=== PATIENT | male | born 1975 | race African-American/Black ===

== ENCOUNTER 2017-02-15 18:37 | Emergency (ER) | payer OTHER ==
[2017-02-15 18:40] VITALS: BP 132/86; TEMP 99.7; BMI 40.3
[2017-02-15] MEDS ORDERED: ZOFRAN 4 MG/2 ML IVP STA (18:47)
[2017-02-15] MEDS ORDERED: SODIUM CHLORIDE 1,000 ML IV STA (18:47)
[2017-02-15] MEDS ORDERED: PROTONIX IV IVP STA (19:05)
[2017-02-15] MEDS ORDERED: PEPCID IVP STA (19:06)
[2017-02-15 19:15] LABS: BASOPHILS % (AUTO) 0.3 % (0.0-3.0); EOSINOPHILS % (AUTO) 0.3 % (0.0-7.0); HEMATOCRIT 40.8 % (42.0-52.0); HEMOGLOBIN 14.1 g/dl (14.0-18.0); IMMATURE GRANULOCYTE % (AUTO) 0.3 % (0.0-5.0); LYMPHOCYTES # (AUTO) 0.5 K/uL (0.60-3.4); MEAN CORPUSCULAR HEMOGLOBIN 29.2 pg (27.0-31.0); MEAN CORPUSCULAR HGB CONC 34.6 (31.8-35.4); MEAN CORPUSCULAR VOLUME 84.5 fl (80.0-94.0); MONOCYTES # (AUTO) 0.2 K/uL (0.4-2.0); MONOCYTES % (AUTO) 6.2 (0-10); NEUTROPHILS # (AUTO) 3.1 K/ul (2.0-6.9); NEUTROPHILS % (AUTO) 78.9; PLATELET COUNT 226 10^3/uL (140-440); RED BLOOD COUNT 4.83 10^6/ul (4.70-6.10); WHITE BLOOD COUNT 3.86 K/ul (4.2-10.2)
--- NOTE | 2017-02-15 19:17 | CT ---
EXAM: CT Abdomen without contrast. CT Pelvis without contrast. HISTORY: Vomiting. Abdominal pain. COMPARISON: None available. TECHNIQUE: Multiple axial images of the abdomen and pelvis were obtained without intravenous contra st. Images were reformatted in the coronal plane. FINDINGS: Please note that evaluation of the abdominal and pelvic structures is limited due to lack of intravenous contrast. Subsegmental atelectasis noted in the lung bases. No acute osseous abnormality identified. The liver, gallbladder, pancreas, spleen, and adrenal glands demonstrate normal contour. No calcifi ed renal stones, hydronephrosis or perinephric inflammation detected. Small hiatal hernia is present. The bowel is normal in course and caliber without evidence for obst ruction or inflammatory process. The appendix is normal. Small fat-containing umbilical hernia not ed. Urinary bladder is unremarkable. Phleboliths noted in the pelvis.. Mild atherosclerotic calci fications are present. IMPRESSION: No acute abnormality within the abdomen or pelvis.
[2017-02-15 19:48] LABS: ALANINE AMINOTRANSFERASE 22 U/L (12-78); ALBUMIN 3.9 g/dL (3.4-5.0); ALBUMIN/GLOBULIN RATIO 1.03; ALKALINE PHOSPHATASE 55 U/L (50-136); AMYLASE 103 U/L (25-115); ANION GAP 12.7; ASPARTATE AMINO TRANSFERASE 27 U/L (15-37); BILIRUBIN,TOTAL 0.86 mg/dL (0.00-1.20); BLOOD UREA NITROGEN 17 mg/dL (7-18); BUN/CREATININE RATIO 13.49; CARBON DIOXIDE 21 mmol/L (21-32); CHLORIDE 108 mmol/L (98-107); CREATINE KINASE 183 U/L; CREATININE 1.26 mg/dL (0.60-1.10); GLUCOSE 90 mg/dL (70-100); LIPASE 37 U/L (8-78); POTASSIUM 3.7 mmol/L (3.5-5.1); SODIUM 138 mmol/L (136-145); TOTAL PROTEIN 7.7 g/dL (6.4-8.2)
[2017-02-15 19:57] LABS: CREATINE KINASE MB 1.3 ng/ml (0.0-3.6)
[2017-02-15 20:11] LABS: FLU INTERNAL QC INTERNAL QC VALID; RAPID FLU A NEGATIVE (NEGATIVE); RAPID FLU B NEGATIVE (NEGATIVE)
[2017-02-15 20:21] LABS: BILIRUBIN,URINE Negative (NEGATIVE); KETONES,URINE Negative (NEGATIVE); LEUKOCYTE ESTERASE ,URINE Negative (NEGATIVE); NITRITE,URINE Negative (NEGATIVE); PH,URINE 5.5 (5-9); PROTEIN,URINE Negative (NEGATIVE); URINE, BLOOD Negative (NEGATIVE)
[2017-02-15 20:22] LABS: ADD URINE MICROSCOPIC NO
--- NOTE | 2017-02-15 20:41 | ED.PDOC ---
General ED Provider: Dr. SANJIV AYAAL-ER Chief Complaint: Nausea/Vomiting Stated Complaint: im sick with vomitnig and diarrhea--two others in my democrat got sick with same symptoms Time Seen by Physician: 18:40 Mode of Arrival: Walk-In Information Source: Patient Exam Limitations: No limitations [facility] T[facility] Documentation Reviewed and Agree: Yes GI Complaint Exam - Vomiting/Diarrhea Complaint/Exam Onset/Duration: a few hours Symptoms Are: Still present Episodes of Vomiting over last 24 Hours: 4 Initial Severity: Mild Current Severity: Mild Character of Vomiting: Reports: Non-bilious Character of Diarrhea: Reports: Watery Aggravating: Reports: None Alleviating: Reports: None Associated Signs and Symptoms: Reports: Abdominal pain, Cramping Non-GI Risk Factors: Reports: None Related Surgical History: Reports: None Abdominal Findings: Present: None Kussmaul Respirations Present: No Differential Diagnoses: Dehydration, Viral Gastroenteritis, Bacterial Gastroenteritis Review of Systems - Review Of Systems Constitutional: Reports: No symptoms Eyes: Reports: No symptoms Ears, Nose, Mouth, Throat: Reports: No symptoms Respiratory: Reports: No symptoms Cardiac: Reports: No symptoms GI: Reports: Abdominal pain, Diarrhea, Nausea, Vomiting : Reports: No symptoms Musculoskeletal: Reports: No symptoms Skin: Reports: No symptoms Neurological: Reports: No symptoms Endocrine: Reports: No symptoms Hematologic/Lymphatic: Reports: No symptoms All Other Systems: Reviewed and Negative Past Medical History - Past Medical History Endocrine: Reports: Unknown Cardiovascular: Reports: Unknown Respiratory: Reports: Unknown Hematological: Reports: Unknown Gastrointestinal: Reports: Unknown Genitourinary: Reports: Unknown Neuro/Psych: Reports: Unknown Musculoskeletal: Reports: Unknown Cancer: Reports: Unknown - Surgical History General Surgical History: Reports: Unknown - Family History Family History: Reports: Unknown - Social History Smoking Status: Never smoker Hx Substance Use: No Alcohol Screening: Occasionally Lives: With family Physical Exam - Physical Exam Appearance: Well-appearing, No pain distress, Well-nourished Pain Distress: Mild Eyes: ELAINE, EOMI, Conjunctiva clear ENT: Ears normal, Nose normal, Oropharynx normal Neck: Supple Respiratory: Airway patent, Breath sounds clear, Breath sounds equal, Respirations nonlabored Cardiovascular: RRR, Pulses normal, No rub, No murmur GI/: Soft, Nontender, No masses, Bowel sounds normal, No Organomegaly Musculoskeletal: Normal strength, ROM intact, No edema, No calf tenderness Skin: Warm, Dry, Normal color Neurological: Sensation intact Psychiatric: Affect appropriate, Mood appropriate Interpretation - Radiology Interpretation Radiology Interpretation By: Radiologist Radiology Results: Negative Exam Interpreted: CT Scan - EKG Interpretation Time of EKG #1: 20:40 Rhythm: Sinus Ectopy: None [place]: NL ST Segment: Normal Re-Evaluation - Re-Evaluation Time of Re-Evaluation: 20:41 Status: Improved (no nausea or abdominal pain) Vital Signs Stable: Yes Pain Level: 0 Appearance: NAD Lungs: Clear Skin: Warm and Dry Neuro: Alert and Oriented X3 CV: RRR Critical Care Note - Critical Care Note Total Time (mins): 0 Course - Course Hematology/Chemistry: 02/15/17 19:10 02/15/17 19:10 Orders, Labs, Meds: Lab Review 02/15/17 02/15/17 02/15/17 19:10 19:45 19:50 WBC 3.86 L RBC 4.83 Hgb 14.1 Hct 40.8 L MCV 84.5 MCH 29.2 MCHC 34.6 RDW Coeff of Ashley 13.7 Plt Count 226 Immature Gran % (Auto) 0.3 Neut % (Auto) 78.9 Lymph % (Auto) 14.0 [place] % (Auto) 6.2 Eos % (Auto) 0.3 Baso % (Auto) 0.3 Immature Gran # (Auto) 0.0 Neut # 3.1 Lymph # 0.5 L [place] # 0.2 L Eos # 0.0 Baso # 0.0 Sodium 138 Potassium 3.7 Chloride 108 H Carbon Dioxide 21 Anion Gap 12.7 BUN 17 Creatinine 1.26 H Estimated GFR (MDRD) 76.00 BUN/Creatinine Ratio 13.49 Glucose 90 Calcium 9.0 Total Bilirubin 0.86 AST 27 ALT 22 Alkaline Phosphatase 55 Total Creatine Kinase 183 CK-MB (CK-2) 1.3 CK-MB (CK-2) % 0.53851 Troponin I < 0.0100 Total Protein 7.7 Albumin 3.9 Globulin 3.8 Albumin/Globulin Ratio 1.03 Amylase 103 Lipase 37 Urine Color Yellow Urine Clarity Clear Urine pH 5.5 Ur Specific Corry 1.015 Urine Protein Negative Urine Glucose (UA) Negative Urine Ketones Negative Urine Blood Negative Urine Nitrite Negative Urine Bilirubin Negative Urine Urobilinogen 0.2 Ur Leukocyte Esterase Negative Influenza A (Rapid) Negative Influenza B (Rapid) Negative Orders Category Date Time Status EKG-(ED ONLY) Stat CARDIO 02/15/17 18:46 Completed ED IV/MEDIPORT/POWERPORT .ONCE EMERGENCY 02/15/17 18:47 Active AMYLASE Stat LAB 02/15/17 19:10 Completed CBC W/ AUTO DIFF Stat LAB 02/15/17 19:10 Completed COMPREHENSIVE METABOLIC PANEL Stat LAB 02/15/17 19:10 Completed CREATINE KINASE Stat LAB 02/15/17 19:10 Completed FLU A & B RAPID TEST [RAPID FLU A/B] Stat LAB 02/15/17 19:45 Completed LIPASE Stat LAB 02/15/17 19:10 Completed MOLECULAR GROUP A STREP Stat LAB 02/15/17 19:45 Results STREP SCREEN Stat LAB 02/15/17 19:45 Results TROPONIN I Stat LAB 02/15/17 19:10 Completed URINALYSIS C & S IF INDICATED Stat LAB 02/15/17 19:50 Completed 0.9 % Sodium Chloride [Saline Flush] MEDS 02/15/17 18:47 Ordered 1 syr IVF PRN PRN Famotidine Inj [Pepcid] MEDS 02/15/17 19:06 Discontinued 40 mg IVP ONCE STA Ondansetron HCl/Pf [Zofran 4 mg/2 ml] MEDS 02/15/17 18:47 Discontinued 4 mg IVP ONCE STA Pantoprazole Sodium [Protonix IV] MEDS 02/15/17 19:05 Discontinued 80 mg IVP ONCE STA Sodium Chloride 0.9% [Sodium Chloride] 1,000 ml MEDS 02/15/17 18:[address] ABDOMEN/PELVIS WO CONTRAST Stat RADS 02/15/17 18:48 Completed Medications Generic Name Dose Route Start Last Admin Trade Name Freq PRN Reason Stop Dose Admin Sodium Chloride 1 syr 02/15/17 18:47 02/15/17 19:26 Saline Flush IVF 2 syr PRN PRN Administration To flush IV Discontinued Medications Generic Name Dose Route Start Last Admin Trade Name Freq PRN Reason Stop Dose Admin Famotidine 40 mg 02/15/17 19:06 02/15/17 19:22 Pepcid IVP 02/15/17 19:07 40 mg ONCE STA Administration Sodium Chloride 1,000 mls @ 1,000 mls/hr 02/15/17 18:47 02/15/17 19:16 Sodium Chloride IV 02/15/17 19:46 1,000 mls/hr BOLUS STA Administration Ondansetron HCl 4 mg 02/15/17 18:47 02/15/17 19:18 Zofran 4 Mg/2 Ml IVP 02/15/17 18:48 4 mg ONCE STA Administration Pantoprazole Sodium 80 mg 02/15/17 19:05 02/15/17 19:26 Protonix Iv IVP 02/15/17 19:06 80 mg ONCE STA Administration Vital Signs: Temp Pulse Resp BP Pulse Ox 02/15/17 18:38 99.7 F H 95 H 16 132/86 97 Departure - Departure Time of Disposition: 20:41 Disposition: HOME SELF-CARE Discharge Problem: Enteritis Instructions: Enteritis (ED) Condition: Good Pt referred to PMD for follow-up: Yes Additional Instructions: clear liquids for 24hrs and slowly advance--zofran 4mg q 4hrs prn#4--return if symptoms return--repeat cbc in a few days Allergies/Adverse Reactions: Allergies No Known Allergies Allergy (Unverified 02/15/17 18:43) Home Medications: Ambulatory Orders Ranitidine HCl [Zantac 75] 75 mg PO BID 01/20/14 Disposition Discussed With: Patient, Family
== END 2017-02-15 20:51 | disposition home or self-care (01) ==
LOC: ED 18:37
DX: K52.9 Noninfective gastroenteritis and colitis, unspecified (principal)
CPT/HCPCS: 36415; 80053; 81001; 82150; 82550; 82553; 83690; 84484; 85025; 87651; 87804; 87880; 93005; 93010; 96361; 96374; 96375; 99283

== ENCOUNTER 2017-06-29 23:50 | Emergency (ER) ==
[2017-06-29 23:57] VITALS: BP 151/96; TEMP 97.8; BMI 36.5
[2017-06-30] MEDS ORDERED: TORADOL IM STA (00:08)
--- NOTE | 2017-06-30 00:38 | CT ---
Exam: CT lumbar spine without contrast History: Lower back pain with left-sided radiculopathy Technique: [address] lumbar spine with multiplanar reformations FINDINGS: Lumbar spine shows normal alignment. Vertebral body height is maintained. No fracture li adelina are suspicious bony lesion. Pars interarticularis defect on the left identified. No spondyloli sthesis. No immediate paravertebral soft tissue abnormalities. T12-L1: Normal L1-L2: Normal L2-L3: Normal L3-L4: Normal L4-L5: Generalized disc bulge. Mild endplate changes with mild - moderate right and mild left fora christa narrowing. L5 and S1: Unilateral left pars interarticularis defect. Minor generalized disc bulge does not ind ent the sac. No central canal or foraminal stenosis. Impression: 1. No acute abnormalities of the lumbar spine. Generally low grade degenerative change as describe magui
--- NOTE | 2017-06-30 00:50 | ED.PDOC ---
General ED Provider: Dr. SANJIV AYALA-ER Chief Complaint: Back Pain Stated Complaint: my back hurts and its going down my leg Time Seen by Physician: 23:55 Mode of Arrival: Walk-In Information Source: Patient Exam Limitations: No limitations [facility] and T[facility] Documentation Reviewed and Agree: Yes Musculoskeletal Complaint Exam - Back Pain Complaint/Exam Mechanism of Injury: Reports: No known trauma Onset/Duration: 3 days Symptoms Are: Still present Timing: Constant Episodes Lasting: Days Initial Severity: Mild Current Severity: Moderate Location: Reports: Discrete Character: Reports: Dull, Aching, Spasmodic Aggravating: Reports: Movements, Lifting, Bending, Walking Alleviating: Reports: None Associated Signs and Symptoms: Reports: Numbness, Tingling. Denies: Swelling, Redness, Bruising, Fever, Weakness, Abdominal pain, Flank pain, Bladder incontinence, Bowel incontinence, Weight loss, Pain with weight bearing TAD Risk Factors: Reports: Hypertension AAA Risk Factors: Reports: None Cauda Equina Risk Factors: Reports: None Epidural Abcess Risk Factors: Reports: None Focal Tenderness: No Paraspinal Muscle Tenderness: No Paraspinal Muscle Spasm: No Scoliosis: No Lordosis: No Kyphosis: No SLR Test: Right Negative, Left Negative Hip Motion Testing Pain: Right Negative, Left Negative Focal Weakness: Present: None Focal Sensory Loss: Present: None Gait: Present: Normal Differential Diagnoses: Herniated Disk, Strain, Sprain Review of Systems - Review Of Systems Constitutional: Reports: No symptoms Eyes: Reports: No symptoms Ears, Nose, Mouth, Throat: Reports: No symptoms Respiratory: Reports: No symptoms Cardiac: Reports: No symptoms GI: Reports: No symptoms : Reports: No symptoms Musculoskeletal: Reports: Back pain Skin: Reports: No symptoms Neurological: Reports: No symptoms Endocrine: Reports: No symptoms Hematologic/Lymphatic: Reports: No symptoms All Other Systems: Reviewed and Negative Past Medical History - Past Medical History Previously Healthy: Yes Endocrine: Reports: Unknown Cardiovascular: Reports: Unknown Respiratory: Reports: Unknown Hematological: Reports: Unknown Gastrointestinal: Reports: Unknown Genitourinary: Reports: Unknown Neuro/Psych: Reports: Unknown Musculoskeletal: Reports: Unknown Cancer: Reports: Unknown - Surgical History General Surgical History: Reports: Unknown - Family History Family History: Reports: Unknown - Social History Smoking Status: Never smoker Hx Substance Use: No Alcohol Screening: Occasionally - Immunizations Tetanus Shot up to Date: Yes Physical Exam - Physical Exam Appearance: Well-appearing, No pain distress, Well-nourished Pain Distress: Moderate Eyes: ELAINE, EOMI, Conjunctiva clear ENT: Ears normal, Nose normal, Oropharynx normal Neck: Supple Respiratory: Airway patent, Breath sounds clear, Breath sounds equal, Respirations nonlabored Cardiovascular: RRR, Pulses normal, No rub, No murmur GI/: Soft, Nontender, No masses, Bowel sounds normal, No Organomegaly Musculoskeletal: Normal strength, ROM intact, No edema, No calf tenderness Skin: Warm, Dry, Normal color Neurological: Sensation intact, Motor intact, Reflexes intact, Cranial nerves intact, Alert, Oriented Psychiatric: Affect appropriate Interpretation - Radiology Interpretation Radiology Interpretation By: Radiologist Exam Interpreted: CT Scan Critical Care Note - Critical Care Note Total Time (mins): 0 Course - Course Orders, Labs, Meds: Orders Category Date Time Status Ketorolac Tromethamine [Toradol] MEDS 06/30/17 00:08 Discontinued 60 mg IM ONCE STA CT LUMBAR SPINE W/O CONTRAST Stat RADS 06/30/17 00:07 Completed Medications Discontinued Medications Generic Name Dose Route Start Last Admin Trade Name Freq PRN Reason Stop Dose Admin Ketorolac Tromethamine 60 mg 06/30/17 00:08 06/30/17 00:22 Toradol IM 06/30/17 00:09 60 mg ONCE STA Administration Vital Signs: Temp Pulse Resp BP Pulse Ox 06/29/17 23:51 97.8 F 65 18 151/96 H 98 Departure - Departure Time of Disposition: 00:50 Disposition: HOME SELF-CARE Discharge Problem: Sciatica Qualifiers: Laterality: right Qualifier Code: (M54.31) Sciatica, right side Instructions: Lumbar Radiculopathy (ED) Condition: Good Pt referred to PMD for follow-up: Yes Additional Instructions: medrol dose pack==neurontin 100mg tid prn schwartz #30=-consider mri of spine if not better Allergies/Adverse Reactions: Allergies No Known Allergies Allergy (Unverified 06/29/17 23:56) Home Medications: Ambulatory Orders 1 [No Reported Medications] 06/29/17 Disposition Discussed With: Patient
== END 2017-06-30 00:56 | disposition home or self-care (01) ==
LOC: ED 23:50
DX: M54.42 Lumbago with sciatica, left side (principal); I10 Essential (primary) hypertension
CPT/HCPCS: 96372; 99282

== ENCOUNTER 2017-07-31 15:00 | Outpatient (RCR) ==
--- NOTE | 2017-07-18 13:20 | RS.OPPTEV2 ---
Date of Note: 07/17/17 Visit #: 1 Date of Evaluation: 07/17/17 Payer Source: Insurance Treatment Diagnosis: Low back pain History of Condition/Mechanism of Injury:: Reports pain started approximately . States pain "came out of nowhere". Reports no previous issues with the back. Current Subjective/complaints:: Patient reports pain is better than when it first started. States he has pain more towards the right low back and hip area. States he has constant numbness into the right LE, in the front of the leg,from the knee to the ankle. Reports he feels better when he is up and moving. States being in one position for too long causes increased pain. 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 States he has had episodes where it felt like the right leg would go out. Reports a time since the onset of pain when he was working and the right leg did go out from under him. Medical History Medical History: Unremarkable Surgical History Comments:: bilateral knee, right hand Smoking Status: Unknown if ever smoked Hx Home Medications: Tramadol, States he has other medication, maybe Oxycodone. Patient's Goals: His goal is to get relief of back pain. Pain Assessment - Pain Description Pain Location: right low back/hip pain Current Pain Intensity: 4/10 Worst Pain Intensity: not quantified Functional Outcome Measure Oswestry LBP: 38 - G Codes & Severity Modifier G Codes & Modifier: NA Source of G Code score: NA Observation - Observation Posture: Forward Head, Rounded Shoulders, Decreased Lumbar Lordosis Gait - Gait Pattern General Gait Pattern Observation: No Deviations/Normal - ROM Lumbar Flexion: Hand reach to patellae Sidebending to Left: Reach to Lateral Joint Line Sidebending to Right: Reach to Mid-thigh Comments: Increased pain with lumbar extension and right sidebending. Reports no pain with left sidebending. Slight discomfort reported with lumbar flexion. Bilateral LE AROM is WFLs. patient reports pain with flexion, ER, and IR of the right hip while lying supine. - Strength Comments: Right LE strength demonstrates generally 4+/5 throughout. Left LE strength 5/5. - Special Tests SLR Test: Negative Left, Negative Right Seated Dural Stretch Test: Negative Left, Negative Right SI Joint Compression: Negative Comments: Unable to perform FABERs test due to patient with reports of increased pain with hip flexion. Does not tolerate ER of right hip while it is flexed. Denies pain with hip ER or IR while lying supine with legs extended. Palpation Comments:: Tenderness over the right lumbar paraspinals, right SI joint, and in the right superior gluteal musculature. Minimal muscle tone noted along the lumbar paraspinals. More muscle tone is noted in the lower thoracic paraspinals bilaterally. Sensation - Sensation Comments: States right LE from knee to ankle, along the front, is numb. Reports intact sensation to light touch and deep pressure. Additional Comments: Additional Comments: Bilateral SLR to 40-45 degrees. Interventions - Exercise/Activities/Manual Therapy Exercises/Activities: No exercises given today. Manual Therapy: NA - Charges Total Direct Minutes: 40 mins Total Treatment Time: 40 mins Procedures billed for this date of service:: ISSAC Low complexity Assessment Assessment: Patient presents to therapy with a diagnosis of Low back pain and right sided radiculopathy. He reports right LE numbness anteriorly from the knee to the ankle. States pain is not as bad as it initially was, but continues to have limited ROM of the back and right LE due to pain. Exhibits increased pain with lumbar extension and right sidebending. Reports tenderness at the right lumbar paraspinals and towards the right superior gluteal musculature. He demonstrates potential to benefit from modalities and stretching exercises to reduce his pain and ROM. Patient Education: Education of diagnosis, Body/Joint mechanics, Education of Plan of Care Rehab Potential: Good Short Term Goals Goal #1: Patient independent and compliant with HEP. Goal to be met by: 08/01/17 Goal #2: Tenderness at right lumbar paraspinals and sup. gluteals decreased to min. Goal to be met by: 08/01/17 Goal #3: Right LE symptoms localized to the hip/low back. 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 Goal to be met by: 08/22/17 Goal #2: Score on Oswestry LBP scale improved to 20. Goal to be met by: 08/22/17 Goal #3: Pt to demo. functional lumbar AROM without pain. Goal to be met by: 08/22/17 Goal #4: Pt able to perform all ADL's and activities at work without back/RLE pain. Goal to be met by: 08/22/17 Plan - Treatment to be Provided Procedures: Therapeutic Exercises, Therapeutic Activity, Manual Therapy, Patient Education Modalities: Electrical Stimulation, Ultrasound/Phonophoresis, Iontophoresis, Cryotherapy, Hot Packs Other:: PRN WITH MODALITIES FOR PAIN RELIEF - Treatment Plan Frequency: 3 X week Duration: 3 weeks ORDER # VISITS AND/OR THROUGH DATE: 08/22/17 - Treatment Code (1) Back pain with right-sided radiculopathy Code(s): M54.10 - RADICULOPATHY, SITE UNSPECIFIED Comments: M54.10
--- NOTE | 2017-07-25 16:13 | RS.OPPTDN ---
Subjective Date of Note: 07/25/17 Visit #: 2 Date of Evaluation: 07/17/17 Payer Source: Insurance Treatment Diagnosis: Low back pain Current Subjective/complaints:: Reports feeling better after modalities and stretching. Reports he does frequent lifting at work. States he will consistently work on HEP of stretching. Pain Assessment - Pain Description Pain Location: right low back/hip pain Current Pain Intensity: 4/10 - Treatment Modality: Electrical Stim Unattended Parameters/Method Applied: [id number] HVGC to 165p.v. 4 large pads cross current to the lowback with HP prior to EX. Patient Position: Supine - Heat/Cryotherapy Treatment: Hot Pack ([id number] with Estim ) Interventions - Exercise/Activities/Manual Therapy Exercises/Activities: [id number] Assisted stretching of bilateral SKTC, hamstrings , piriformis, and trunk rotation. Patient education of dx, body mechanics, safe lifting, and HEP. Patient given copies. Total minutes of Exercise: 15mins Manual Therapy: NA HOME EXERCISE PROGRAM: SKTC, DKTC, ham stretch, piriformis stretch, and lower trunk rotation - Charges Total Direct Minutes: 15mins Total Treatment Time: 40mins Procedures billed for this date of service:: HP, Estim unattended, EX Assessment: Patient appears motivated to work on HEP and progress. Patient Education: Body/Joint mechanics, Home Exercise Program, Home Safety, Activity Modification Patient demonstrates compliance with HEP?: Yes Short Term Goals Goal #1: Patient independent and compliant with HEP. Goal to be met by: 08/01/17 Progress towards Goal:: Progressing Goal #2: Tenderness at right lumbar paraspinals and sup. gluteals decreased to min. Goal to be met by: 08/01/17 Goal #3: Right LE symptoms localized to the hip/low back. 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 Goal to be met by: 08/22/17 Goal #2: Score on Oswestry LBP scale improved to 20. Goal to be met by: 08/22/17 Goal #3: Pt to demo. functional lumbar AROM without pain. Goal to be met by: 08/22/17 Goal #4: Pt able to perform all ADL's and activities at work without back/RLE pain. Goal to be met by: 08/22/17 Plan PLAN OF CARE EXPIRES ON:: 08/22/17 ORDER # VISITS AND/OR THROUGH DATE: 08/22/17 PLAN: Progress Exercises (Continue modalities and progress exercise to reduce pain and increase functional activity level.)
--- NOTE | 2017-07-27 16:18 | RS.OPPTDN ---
Subjective Date of Note: 07/27/17 Visit #: 3 Date of Evaluation: 07/17/17 Payer Source: Insurance Treatment Diagnosis: Low back pain Current Subjective/complaints:: Patient reports last treatment seemed to help with pain level. He has tried to perform some stretches, but has worked both his daytime and evening jobs since he was here last. Pain Assessment - Pain Description Pain Location: right low back/hip pain Current Pain Intensity: 4/10 - Treatment Modality: Electrical Stim Unattended Parameters/Method Applied: [id number] HVGC to 180p.v. with 4 large pads cross current to the bilateral lumbar paraspinals with HP. Patient Position: Supine - Heat/Cryotherapy Treatment: Hot Pack ([id number] with Estim ) Interventions - Exercise/Activities/Manual Therapy Exercises/Activities: [id number] Assisted stretching of bilateral SKTC, hamstrings , piriformis, and trunk rotation. Isometric hip adduction. Isometric hip flexion. Discussion of HEP. Total minutes of Exercise: 14mins Manual Therapy: NA HOME EXERCISE PROGRAM: SKTC, DKTC, ham stretch, piriformis stretch, and lower trunk rotation. Isometric hip flexion. - Charges Total Direct Minutes: 14mins Total Treatment Time: 40mins Procedures billed for this date of service:: HP, Estim unattended, EX Assessment: Patient has been working 2 jobs and unable to work on HEP consistently. Only one addition to HEP and patient needs to focus on increasing hamstring stretching. Patient Education: Body/Joint mechanics, Home Exercise Program Patient demonstrates compliance with HEP?: Yes Short Term Goals Goal #1: Patient independent and compliant with HEP. Goal to be met by: 08/01/17 Progress towards Goal:: Progressing Goal #2: Tenderness at right lumbar paraspinals and sup. gluteals decreased to min. Goal to be met by: 08/01/17 Progress towards Goal:: Progressing Goal #3: Right LE symptoms localized to the hip/low back. 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 Goal to be met by: 08/22/17 Goal #2: Score on Oswestry LBP scale improved to 20. Goal to be met by: 08/22/17 Goal #3: Pt to demo. functional lumbar AROM without pain. Goal to be met by: 08/22/17 Goal #4: Pt able to perform all ADL's and activities at work without back/RLE pain. Goal to be met by: 08/22/17 Plan PLAN OF CARE EXPIRES ON:: 08/22/17 ORDER # VISITS AND/OR THROUGH DATE: 08/22/17 PLAN: Continue Plan of Care (Continue modalities and progress exercise to reduce pain and patients ability with functional activities.)
--- NOTE | 2017-07-31 16:02 | RS.OPPTDN ---
Subjective Date of Note: 07/31/17 Visit #: 4 Date of Evaluation: 07/17/17 Payer Source: Insurance Treatment Diagnosis: Low back pain Current Subjective/complaints:: Patient reports improvement in back pain today. States he is working on HEP. Pain Assessment - Pain Description Pain Location: right low back/hip pain Current Pain Intensity: 2-3/10 - Treatment Modality: Ultrasound Parameters/Method Applied: [id number] @ 1.5w/cm2 to the bilateral lower lumbar paraspinals and S-I joints, with focus on left, prior to EX. Patient Position: Left Sidelying Interventions - Exercise/Activities/Manual Therapy Exercises/Activities: [id number] Assisted stretching of bilateral SKTC, hamstrings , piriformis, and trunk rotation. Isometric hip adduction. Isometric hip flexion. Began bridging. Patient given copy of new ex. Total minutes of Exercise: 15mins Manual Therapy: NA HOME EXERCISE PROGRAM: SKTC, DKTC, ham stretch, piriformis stretch, and lower trunk rotation. Isometric hip flexion. - Charges Total Direct Minutes: 27mins Total Treatment Time: 32mins Procedures billed for this date of service:: US, EX Assessment: Patient responding to treatment and appears to be working on HEP. Patient Education: Body/Joint mechanics, Home Exercise Program, Home Safety, Activity Modification Comments: Pt education of safe lifting. Patient demonstrates compliance with HEP?: Yes Short Term Goals Goal #1: Patient independent and compliant with HEP. Goal to be met by: 08/01/17 Progress towards Goal:: Progressing Goal #2: Tenderness at right lumbar paraspinals and sup. gluteals decreased to min. Goal to be met by: 08/01/17 Progress towards Goal:: Progressing Goal #3: Right LE symptoms localized to the hip/low back. 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 Goal to be met by: 08/22/17 Goal #2: Score on Oswestry LBP scale improved to 20. Goal to be met by: 08/22/17 Goal #3: Pt to demo. functional lumbar AROM without pain. Goal to be met by: 08/22/17 Goal #4: Pt able to perform all ADL's and activities at work without back/RLE pain. Goal to be met by: 08/22/17 Plan PLAN OF CARE EXPIRES ON:: 08/22/17 ORDER # VISITS AND/OR THROUGH DATE: 08/22/17 PLAN: Progress Exercises (Continue modalities and progress exercise.)
--- NOTE | 2017-08-02 16:26 | RS.CXNS ---
Date of scheduled appointment: 08/02/17 Type: Cancel (Patient called approx 20 after appointment time to report he had to work over and just got off work. He has appointment on Monday and will attend.)
--- NOTE | 2017-08-03 15:47 | RS.CXNS ---
Date of scheduled appointment: 08/03/17 Type: No Show Reason for Cancel/NS: Unknown
== END 2017-08-05 ==
PROVIDERS: ATTEND Nurse Practitioner Family
DX: M54.9 Dorsalgia, unspecified (principal); G89.29 Other chronic pain; M54.10 Radiculopathy, site unspecified

== ENCOUNTER 2018-04-30 05:56 | Emergency (ER) ==
[2018-04-30 06:21] VITALS: TEMP 97.6; BMI 40.1
[2018-04-30] MEDS ORDERED: ZESTRIL PO STA (06:29)
--- NOTE | 2018-04-30 06:50 | ED.PDOC ---
General ED Provider: Dr. SANJIV AYALA-ER Chief Complaint: Shoulder Pain/Injury Stated Complaint: my shoulder hurts and it has a lump on it Time Seen by Physician: 06:15 Mode of Arrival: Walk-In Information Source: Patient Exam Limitations: No limitations Primary Care Provider: MOOKIE GARBER[facility] Nursing and Triage Documentation Reviewed and Agree: Yes Does patient meet sepsis criteria?: No System Inflammatory Response Syndrome: Not Applicable Sepsis Protocol: For patient's 13 years and over: Temp is 96.8 and below OR 101 and greater Pulse >90 BPM Resp >20/minute Acutely Altered Mental Status Are patient's symptoms suggestive of a new infection, such as: -Pneumonia -Skin, Soft Tissue -Endocarditis -UTI -Bone, Joint Infection -Implantable Device -Acute Abdominal Infection -Wound Infection -Meningitis -Blood Stream Catheter Infection -Unknown Musculoskeletal Complaint Exam - Shoulder Pain Complaint/Exam Mechanism of Injury: Reports: No known trauma Onset/Duration: 3 days Symptoms Are: Still present Timing: Intermittent Initial Severity: Mild Current Severity: Mild Location: Reports: Discrete (right ac joint) Character: Reports: Dull, Aching Alleviating: Reports: None Aggravating: Reports: Movement, Lifting, Flexion, Extension, Internal rotation, External rotation, Abduction Associated Signs and Symptoms: Reports: Swelling Septic Arthritis Risk Factors: Reports: None Shoulder Findings: Present: Swelling, Abnormal contour Tenderness: Present: AC joint Limited Range of Motion: Present: Abduction, Adduction, Flexion, Extension, Internal rotation, External rotation Differential Diagnoses: AC Seperation, Arthritis, Bursitis, Other Review of Systems - Review Of Systems Constitutional: Reports: No symptoms Eyes: Reports: No symptoms Ears, Nose, Mouth, Throat: Reports: No symptoms Respiratory: Reports: No symptoms Cardiac: Reports: No symptoms GI: Reports: No symptoms : Reports: No symptoms Musculoskeletal: Reports: Joint pain, Joint swelling Skin: Reports: No symptoms Neurological: Reports: No symptoms Endocrine: Reports: No symptoms Hematologic/Lymphatic: Reports: No symptoms All Other Systems: Reviewed and Negative Past Medical History - Past Medical History Previously Healthy: Yes Endocrine: Reports: Unknown Cardiovascular: Reports: Unknown Respiratory: Reports: Unknown Hematological: Reports: Unknown Gastrointestinal: Reports: Unknown Genitourinary: Reports: Unknown Neuro/Psych: Reports: Unknown Musculoskeletal: Reports: Unknown Cancer: Reports: Unknown - Surgical History General Surgical History: Reports: Unknown - Family History Family History: Reports: Unknown - Social History Smoking Status: Never smoker Hx Substance Use: No Alcohol Screening: Occasionally - Immunizations Tetanus Shot up to Date: Yes Physical Exam - Physical Exam Appearance: Well-appearing, No pain distress, Well-nourished Pain Distress: Mild Eyes: ELAINE, EOMI, Conjunctiva clear ENT: Ears normal, Nose normal, Oropharynx normal Neck: Supple Respiratory: Airway patent, Breath sounds clear, Breath sounds equal, Respirations nonlabored Cardiovascular: RRR GI/: Soft, Nontender, No masses, Bowel sounds normal, No Organomegaly Musculoskeletal: Limited ROM (exam does confirm swelling of the a-c joint) Skin: Warm, Dry, Normal color Neurological: Sensation intact, Motor intact, Reflexes intact, Cranial nerves intact, Alert, Oriented Psychiatric: Affect appropriate, Mood appropriate Interpretation - Radiology Interpretation Radiology Interpretation By: Radiologist Radiology Results: Positive Exam Interpreted: CT Scan Re-Evaluation - Re-Evaluation Time of Re-Evaluation: 07:14 Status: Improved Vital Signs Stable: Yes (158/107) Appearance: NAD Lungs: Clear Skin: Warm and Dry Neuro: Alert and Oriented X3 CV: RRR Critical Care Note - Critical Care Note Total Time (mins): 0 Course - Course Orders, Labs, Meds: Orders Category Date Time Status Lisinopril [Zestril] MEDS 04/30/18 06:29 Discontinued 20 mg PO ONCE STA CT SHOULDER RIGHT W/O CONTRAST Stat RADS 04/30/18 06:29 Completed Medications Discontinued Medications Generic Name Dose Route Start Last Admin Trade Name Freq PRN Reason Stop Dose Admin Lisinopril 20 mg 04/30/18 06:29 04/30/18 06:34 Zestril PO 04/30/18 06:30 20 mg ONCE STA Administration Vital Signs: Temp Pulse Resp BP Pulse Ox 04/30/18 06:10 97.6 F 78 20 169/111 H 96 Departure - Departure Time of Disposition: 07:14 Disposition: HOME SELF-CARE Discharge Problem: Arthritis of right acromioclavicular joint HTN (hypertension) Qualifiers: Hypertension type: essential hypertension Qualified Code(s): I10 - Essential ( primary) hypertension Instructions: Osteoarthritis (ED) Condition: Good Pt referred to PMD for follow-up: Yes IPMP verified?: No Additional Instructions: zestril 10mg #30---ultram 50mg 1-2 tabs q 6hrs prn pain #15--f/u with pcp in 1- 2 days Allergies/Adverse Reactions: Allergies No Known Allergies Allergy (Verified 04/30/18 06:17) Disposition Discussed With: Patient
--- NOTE | 2018-04-30 07:09 | CT ---
Exam: CT right shoulder without contrast History: Right shoulder pain and deformity Technique: [address] of the right shoulder with multiplanar reformations FINDINGS: There is no plain radiograph for comparison. Marginal cystic changes of the humeral head indicating mild osteoarthritic change. Osteoarthritic enlargement of the acromioclavicular joint wit h a 1.8 cm ossicle. No joint effusion is seen. No acute bony or articular abnormalities. No acute chest wall abnormality. Impression: Mild glenohumeral and moderate acromioclavicular osteoarthritic change. No acute bony o r articular abnormality of the shoulder.
[2018-04-30 07:17] VITALS: BP 158/107
== END 2018-04-30 07:25 | disposition home or self-care (01) ==
LOC: ED 05:56
DX: M19.011 Primary osteoarthritis, right shoulder (principal); I10 Essential (primary) hypertension
CPT/HCPCS: 99282

== ENCOUNTER 2019-02-04 12:52 | Outpatient (CLI) | END 2019-02-04 12:53 | disposition home or self-care (01) | LOC: LAB 12:52 | PROVIDERS: ATTEND Nurse Practitioner Family | DX: E78.5 Hyperlipidemia, unspecified (principal); I10 Essential (primary) hypertension | CPT/HCPCS: 36415; 80053; 80061; 85025 ==

== ENCOUNTER 2019-07-11 15:02 | Outpatient (CLI) | END 2019-07-11 15:03 | disposition home or self-care (01) | LOC: LAB 15:02 | PROVIDERS: ATTEND Nurse Practitioner Family | DX: E78.5 Hyperlipidemia, unspecified (principal); I10 Essential (primary) hypertension; E66.9 Obesity, unspecified | CPT/HCPCS: 36415; 80053; 80061; 85025; 93005; 93010 ==